=== PATIENT | female | born 1955 | race Caucasian/White ===

== ENCOUNTER 2019-04-17 11:21 | Emergency (ER) | payer SELFPAY ==
[2019-04-17] MEDS ORDERED: methylPREDNISolone Sod Succ/PF 125 MG/2 ML VIAL ONE (11:45)
--- NOTE | 2019-04-17 11:54 | RAD ---
Portable frontal chest radiograph: 04/17/2019 COMPARISON: None HISTORY: Shortness of breath FINDINGS: There is pulmonary vascular congestion with interstitial linear density in the perihilar re gions and both lung bases. No pneumothorax, focal consolidation, or pleural fluid. IMPRESSION: Interstitial prominence and pulmonary vascular congestion suggest mild interstitial edema in the proper clinical setting.
[2019-04-17 12:00] LABS: Base Excess-Venous 0.9 mmol/L (-2.0 to 3.0); Bicarbonate (HCO3v) 28.8 mmol/L (22.0-28.0); CO2 Tension (PvCO2) 55.4 mmHg (40.0-50.0); Calcium, Ionized 1.04 mmol/L (See Comments:); Chloride 104 mmol/L (98-107); Hemoglobin - Calc 19.2 g/dL (12.0-16.0); Potassium 5.5 mmol/L (3.5-5.1); Sodium 134 mmol/L (138-145); T. Carbon Dioxide 30.5 mmol/L (22.0-28.0); vO2 Saturation-calc 99.8 % (60.0-85.0)
[2019-04-17 12:19] LABS: Mean Corpuscular HGB CONC 31.6 g/dL (32.0-36.0); Mean Corpuscular Hemoglobin 29.7 pg (27.0-31.0); Mean Corpuscular Volume 93.9 fL (78.0-98.0); Mean Platelet Volume 9.3 fL (7.4-10.4); Platelet Count 284 thou/uL (130-400); Red Blood Cell (RBC) Count 5.38 mill/uL (4.20-5.40); White Blood Cell (WBC) Count 9.5 thou/uL (4.8-10.8)
[2019-04-17 12:20] LABS: Band 3 % (5-11); MDiff Complete? YES; Monocytes 6 % (0-10); Neutrophil 90 % (42-75); Platelet Morphology Comment Appears Adequate; RBC Morphology Normal; Reactive Lymphocytes 1 % (0-10)
[2019-04-17 12:23] LABS: ALT (SGPT) 32 U/L (8-55); AST (SGOT) 53 U/L (5-34); Albumin 4.6 g/dL (3.4-4.8); Alkaline Phosphatase 67 U/L (40-110); Anion Gap 19 mmol/L (10-20); BUN (Urea Nitrogen) 10 mg/dL (9.8-20.1); Bilirubin, Total 0.2 mg/dL (0.2-1.2); Calc. Creatinine Clearance 0 mL/min (70-130); Calcium 8.9 mg/dL (7.8-10.44); Carbon Dioxide 22 mmol/L (23-31); Chloride 98 mmol/L (98-107); Estimated GFR-MDRD 85; Glucose 123 mg/dL (80-115); Potassium 4.2 mmol/L (3.5-5.1); Protein, Total 7.6 g/dL (6.0-8.3); Sodium 135 mmol/L (136-145)
[2019-04-17] MEDS ORDERED: Sodium Chloride 0.9% 500 ML ONE (13:54)
[2019-04-17] MEDS ORDERED: Azithromycin 500 MG VIAL ONE ×2 (13:54→13:55)
== END 2019-04-17 14:12 | disposition short-term general hospital (02) ==
LOC: MADERS 11:21
DX: J44.1 Chronic obstructive pulmonary disease with (acute) exacerbation (principal); R06.89 Other abnormalities of breathing; F17.210 Nicotine dependence, cigarettes, uncomplicated
CPT/HCPCS: 71045; 80053; 82330; 82803; 83880; 84484; 85025; 93005; 96374; 96375; J0456; J2930; J7050; J7620